=== PATIENT | female | born 1950 | race Caucasian/White ===

== ENCOUNTER → 2018-08-15 | Outpatient (CLI) | payer OTHER ==
[~2018-08-15] MED LIST: ASPI-482 PO; CALC1TAB PO; LISI-338 PO; METF500T16 PO; SIMV20TA3 PO
--- NOTE | 2018-08-15 15:13 | KCIC ---
MR of the right shoulder Indication: Right shoulder pain, pain with certain movements, patient fell July 10, 2018. Technique: Standard multiplanar sequences are obtained. Findings: Artifact: No significant image degradation. Acromioclavicular joint: Very mild degenerative change. No significant undersurface mass effect. Rotator cuff: * Supraspinatus-infraspinatus tendon: Tendinosis. Diffusely heterogeneous signal. No evidence of measurable fluid gap or rupture. * Subscapularis tendon: Tendinosis, no measurable defect or through and through rupture. * Muscle bulk: Mild volume loss and atrophy. * Subacromial subdeltoid bursa: Trace effusion. Fluid: Small glenohumeral effusion. Glenohumeral cartilage: Mild primary osteoarthritis with chondromalacia and small osteophytes Labrum: Mild heterogeneous signal within the superior labrum which is also slightly blunted. Compatible with degeneration, possible degenerative tear, but no acute appearing labral detachment. Biceps tendon: Intact Bones: No lesion or acute fracture. Soft tissue: No acute findings. Impression: 1. Rotator cuff tendinosis. No measurable defect or rupture. 2. Primary osteoarthritis. 3. Superior labral degeneration. Electronically signed by: Jhon Cabrera MD (08/15/2018 3:10 PM) [id number]
== END | disposition home or self-care (01) ==
LOC: KCIC MRI 13:01
PROVIDERS: ATTEND Orthopaedic Surgery
DX: M19.011 Primary osteoarthritis, right shoulder (principal); M75.101 Unspecified rotator cuff tear or rupture of right shoulder, not specified as traumatic; M94.211 Chondromalacia, right shoulder; M25.711 Osteophyte, right shoulder; M62.511 Muscle wasting and atrophy, not elsewhere classified, right shoulder; M25.411 Effusion, right shoulder
CPT/HCPCS: 73221

== ENCOUNTER → 2021-06-12 | Outpatient (CLI) | payer MEDICARE ==
[~2021-06-12] MED LIST changes: -LISI-338 PO; +LISI-517 PO; +SIMV20TA18 PO; -SIMV20TA3 PO
--- NOTE | 2021-06-12 13:08 | KCIC ---
Bilateral digital screening mammograms with 3-D tomosynthesis: Reason for examination: Routine screening. No previous exams for comparison. Bilateral mammograms in CC and oblique projections were obtained with 2-D imaging and 3-D tomosynthes is imaging on a Siemens Inspiration unit and reviewed on the workstation. Interpretation was made wit h the benefit of CAD. The skin and nipples show no abnormalities. No abnormal axillary lymph nodes are seen. The breast par enchyma shows scattered fatty and fibroglandular density. (Breast density: Category B.) There appear to be small nodular densities at the 11:00 position anteriorly in the right breast and in the upper o uter quadrant of the left breast anteriorly. Further evaluation with ultrasound is recommended. Benig n-appearing calcifications are present. Impression: Small nodular densities anteriorly in the upper-outer quadrants bilaterally. Recommend further evalua tion with ultrasound. BI-RAD Category 0: Incomplete. Needs additional imaging evaluation. "Our facility is accredited by the [employer] Mammography [employer]." This patient's information has been entered into a reminder system for the patient to be notified wit h the results of her examination and a target date for the next mammogram. Electronically signed by: Marycruz Ball MD (06/12/2021 1:06 PM) [id number]
--- NOTE | 2021-06-12 14:02 | KCIC ---
INDICATION: Screening for osteopenia/osteoporosis. Reason: POST MENOPAUSAL, OSTEOPENIA, VIT D DEFICI ENCY / Spl. Instructions: / History: COMPARISON: None. TECHNIQUE: Bone densitometry was performed through the lumbar spine and proximal femur. IMPRESSION: Lumbar Spine: BMD: 1.05 T-Score: 0.1 Range: Normal Proximal Femur: BMD: 0.8 T-Score: -1.2 Range: Osteopenic World Health Organization Criteria for Bone Density: T-Score: > -1.0: Normal Range < -1.0 to -2.5: Osteopenic Range < -2.5: Osteoporotic Range Electronically signed by: Austin Azar MD (06/12/2021 1:59 PM) [id number]
== END ==
LOC: KCIC MAMMO 10:08
PROVIDERS: ATTEND Internal Medicine
DX: Z12.31 Encounter for screening mammogram for malignant neoplasm of breast (principal); M85.88 Other specified disorders of bone density and structure, other site; N95.9 Unspecified menopausal and perimenopausal disorder; N63.21 Unspecified lump in the left breast, upper outer quadrant; N63.11 Unspecified lump in the right breast, upper outer quadrant; E55.9 Vitamin D deficiency, unspecified
CPT/HCPCS: 77063; 77067; 77080

== ENCOUNTER → 2021-06-22 | Outpatient (CLI) | payer MEDICARE ==
--- NOTE | 2021-06-22 14:03 | KCIC ---
Bilateral breast ultrasound: Reason for examination: Nodular densities on screening mammogram. Comparison is made to mammographic exam dated 06/12/2021. Ultrasound examinations of the breasts and axilla were performed bilaterally. In the right breast, there is some ductal ectasia. There are some mild fibrocystic type changes in th e retroareolar 12:00 position. There appears be a small fibrocystic type lesion in the 11:00 position anteriorly. No suspicious abnormalities are seen. No abnormal appearing lymph nodes are seen in the axilla. In the left breast, there is a small 8.2 mm hypoechoic circumscribed lesion at the 3:00 position 6 cm from the nipple which probably represents a small fibroadenoma. There is also a small 4.3 mm fibrocy stic type nodule at the 3:00 position anteriorly benign fibrocystic appearance. No suspicious nodules are seen. No abnormal appearing lymph nodes are seen in the left axilla. IMPRESSION: Small benign-appearing fibrocystic type changes bilaterally. No suspicious lesion seen. Recommend 6 m onth follow-up with mammograms and ultrasound. BI-RADS Category 3: Probably Benign. "Our facility is accredited by the [employer]ammography [employer]." This patient's information has been entered into a reminder system for the patient to be notified wit h the results of her examination and a target date for the next mammogram. Electronically signed by: Marycruz Ball MD (06/22/2021 2:00 PM) [email or web address]
== END ==
LOC: KCIC US 10:41
PROVIDERS: ATTEND Internal Medicine
DX: N63.23 Unspecified lump in the left breast, lower outer quadrant (principal)
CPT/HCPCS: 76641